=== PATIENT | male | born 1980 | race Hispanic/Latino ===

== ENCOUNTER 2022-10-05 16:34 | Emergency (ER) | payer OTHER, SELFPAY ==
[2022-10-05] MEDS ORDERED: Fluorescein Opthalmic Strip ONE ×3 (16:48→16:50)
[2022-10-05] MEDS ORDERED: Proparacaine 0.5% Opth 15 ML BOT ONE (16:51)
== END 2022-10-05 17:30 | disposition home or self-care (01) ==
LOC: ERS 16:34
DX: S05.01XA Injury of conjunctiva and corneal abrasion without foreign body, right eye, initial encounter (principal); X58.XXXA Exposure to other specified factors, initial encounter; Y92.69 Other specified industrial and construction area as the place of occurrence of the external cause
CPT/HCPCS: 99283